=== PATIENT | male | born 1970 | race Caucasian/White ===

== ENCOUNTER 2016-11-13 02:39 | Emergency (ER) | payer SELFPAY ==
[~2016-11-13 02:39] MED LIST: ACULAR10 ML OD; ALBUTEROL17 GM INH; AMOXIL500 MG PO; BENZONATATE PO; CORTISPORIN-TC10 ML AS; ERYTHROMYCIN O3.5 GM OD; IBUPROFEN800 MG PO; POLYTRIM EYE DR10 ML OD; PREDNISONE PO; ZITHROMAX PO
[2016-11-13] MEDS ORDERED: NO MEDICATIONS (02:46)
== END 2016-11-13 04:00 | disposition home or self-care (01) ==
LOC: SED 02:39
DX: B35.2 Tinea manuum (principal)
CPT/HCPCS: 99283